=== PATIENT | male | born 1960 | race Hispanic/Latino ===

== ENCOUNTER 2020-11-13 19:35 | Emergency (ER) | payer OTHER ==
[2020-11-13] MEDS ORDERED: Morphine 4 MG/ML VIAL ONE (20:38)
[2020-11-13 20:55] LABS: Hemoglobin 14.7 g/dL (13.5-17.5); Mean Corpuscular HGB CONC 34.3 g/dL (32.0-36.0); Mean Corpuscular Hemoglobin 30.2 pg (27.0-33.0); Mean Corpuscular Volume 87.9 fl (81.2-95.1); Mean Platelet Volume 9.2 fl (7.4-10.4); Platelet Count 330 10x3/uL (150-450); RBC Distribution Width 12.3 % (11.5-14.5); Red Blood Cell (RBC) Count 4.87 10x6/uL (4.32-5.72); White Blood Cell (WBC) Count 21.5 10x3/uL (3.5-10.5)
[2020-11-13 21:11] LABS: ALT (SGPT) 12 U/L (8-55); AST (SGOT) 18 U/L (5-34); Albumin 3.6 g/dL (3.4-4.8); Alkaline Phosphatase 129 U/L (40-110); Anion Gap 17 mmol/L (10-20); BUN (Urea Nitrogen) 28 mg/dL (8.4-25.7); Bilirubin, Total 0.8 mg/dL (0.2-1.2); Calc. Creatinine Clearance 0 mL/min (70-130); Calcium 9.3 mg/dL (7.8-10.44); Carbon Dioxide 24 mmol/L (23-31); Chloride 95 mmol/L (98-107); Globulin 4.7 g/dL (2.4-3.5); Glucose 354 mg/dL (80-115); INR-International Normal Ratio 1.1; PTT 20.7 sec (22.0-33.0); Potassium 4.5 mmol/L (3.5-5.1); Protein, Total 8.3 g/dL (5.8-8.1); Prothrombin Time 11.9 sec (9.5-12.1); Sodium 131 mmol/L (136-145)
[2020-11-13 21:19] LABS: Band 16 % (5-11); Eosinophils 3 % (0-10); Lymphocytes 8 % (21-51); Monocytes 10 % (0-10); Neutrophil 63 % (42-75)
[2020-11-13 21:20] LABS: MDiff Complete? YES; Manual Diff?? YES
[2020-11-13 21:22] LABS: Platelet Morphology Comment Appears Adequate; RBC Morphology Normal
[2020-11-13] MEDS ORDERED: Cefepime 2 GM VIAL ONE (22:12)
[2020-11-14] MEDS ORDERED: Morphine 4 MG/ML VIAL ONE (01:28)
== END 2020-11-14 09:18 | disposition short-term general hospital (02) ==
LOC: CSHERS 19:35
DX: A41.9 Sepsis, unspecified organism (principal); L02.11 Cutaneous abscess of neck; M60.9 Myositis, unspecified; E10.9 Type 1 diabetes mellitus without complications; I25.10 Atherosclerotic heart disease of native coronary artery without angina pectoris; I48.91 Unspecified atrial fibrillation; Z79.82 Long term (current) use of aspirin; Z79.899 Other long term (current) drug therapy
CPT/HCPCS: 36415; 36416; 70491; 80053; 83605; 85025; 85610; 85730; 87040; 96365; 96366; 96367; 96375; 96376; J0692; J2270; J3370

== ENCOUNTER 2021-06-20 10:28 | Emergency (ER) | payer OTHER ==
[2021-06-20 11:10] LABS: #Monocytes 1.6 10x3/uL (0.0-1.1); %Basophils 0.2 % (0.0-2.0); %Lymphocytes 2.3 % (18.0-47.0); %Monocytes 8.9 % (0.0-10.0); %Neutrophils 87.8 % (40.0-75.0); Hemoglobin 13.1 g/dL (13.5-17.5); Mean Corpuscular HGB CONC 33.9 g/dL (32.0-36.0); Mean Corpuscular Volume 91.5 fl (81.2-95.1); Mean Platelet Volume 9.3 fl (7.4-10.4); Platelet Count 190 10x3/uL (150-450); RBC Distribution Width 12.3 % (11.5-14.5); Red Blood Cell (RBC) Count 4.23 10x6/uL (4.32-5.72); White Blood Cell (WBC) Count 18.2 10x3/uL (3.5-10.5)
[2021-06-20] MEDS ORDERED: Cefepime 2 GM VIAL ONE (11:11)
[2021-06-20 11:22] LABS: INR-International Normal Ratio 1.1; PTT 25.9 sec (22.0-33.0); Prothrombin Time 12.5 sec (9.5-12.1)
[2021-06-20 11:28] LABS: ALT (SGPT) 14 U/L (8-55); AST (SGOT) 23 U/L (5-34); Albumin 3.2 g/dL (3.4-4.8); Alkaline Phosphatase 91 U/L (40-110); Anion Gap 14 mmol/L (10-20); BUN (Urea Nitrogen) 22 mg/dL (8.4-25.7); Bilirubin, Total 1.6 mg/dL (0.2-1.2); Calc. Creatinine Clearance 0 mL/min (70-130); Calcium 8.2 mg/dL (7.8-10.44); Carbon Dioxide 20 mmol/L (23-31); Chloride 101 mmol/L (98-107); Globulin 3.5 g/dL (2.4-3.5); Glucose 237 mg/dL (80-115); Protein, Total 6.7 g/dL (5.8-8.1); Sodium 131 mmol/L (136-145)
[2021-06-20] MEDS ORDERED: CLINDAMYCIN IVPB SCH (11:45)
[2021-06-20] MEDS ORDERED: D5W IVPB SCH (11:45)
[2021-06-20] MEDS ORDERED: VANCOMYCIN 2 GRAM/400 ML BAG 2 GM in Premix Bag 1 BAG IVPB SCH (11:45)
[2021-06-20 11:55] LABS: SARS-CoV-2 NAA Rapid Test Not Detected (NotDetected)
== END 2021-06-20 14:51 | disposition short-term general hospital (02) ==
LOC: CSHERS 10:28 → EEVIPCON 10:28 → CSHERS 14:51
DX: A41.9 Sepsis, unspecified organism (principal); S06.6X0A Traumatic subarachnoid hemorrhage without loss of consciousness, initial encounter; L03.116 Cellulitis of left lower limb; E11.9 Type 2 diabetes mellitus without complications; I48.91 Unspecified atrial fibrillation; I25.10 Atherosclerotic heart disease of native coronary artery without angina pectoris; N40.1 Benign prostatic hyperplasia with lower urinary tract symptoms; Z20.822 Contact with and (suspected) exposure to COVID-19; Z79.82 Long term (current) use of aspirin; Z79.4 Long term (current) use of insulin; Z79.899 Other long term (current) drug therapy
CPT/HCPCS: 0240U; 70450; 71045; 80053; 83605; 85025; 85610; 85730; 86850; 86900; 86901; 87040; 87077; 87149; 87186; 93005; 96365; 96368; J0692; J3370; J3490

== ENCOUNTER 2021-07-08 10:15 | Emergency (ER) | payer OTHER ==
[2021-07-08 10:49] LABS: #Eosinphils 0.2 10x3/uL (0.0-0.5); #Monocytes 0.7 10x3/uL (0.0-1.1); #Neutrophils 6.1 10x3/uL (1.5-8.4); %Basophils 0.4 % (0.0-2.0); %Eosinophils 2.8 % (0.0-6.0); %Monocytes 8.7 % (0.0-10.0); %Neutrophils 74.9 % (40.0-75.0); Mean Corpuscular HGB CONC 32.2 g/dL (32.0-36.0); Mean Corpuscular Volume 93.3 fl (81.2-95.1); Mean Platelet Volume 8.6 fl (7.4-10.4); Platelet Count 304 10x3/uL (150-450); RBC Distribution Width 12.5 % (11.5-14.5); White Blood Cell (WBC) Count 8.2 10x3/uL (3.5-10.5)
[2021-07-08 11:05] LABS: ALT (SGPT) 9 U/L (8-55); AST (SGOT) 15 U/L (5-34); Albumin 3.1 g/dL (3.4-4.8); Alkaline Phosphatase 86 U/L (40-110); Anion Gap 12 mmol/L (10-20); BUN (Urea Nitrogen) 46 mg/dL (8.4-25.7); Bilirubin, Total 0.5 mg/dL (0.2-1.2); CK (CPK) 33 U/L (30-200); Calc. Creatinine Clearance 0 mL/min (70-130); Calcium 8.4 mg/dL (7.8-10.44); Carbon Dioxide 25 mmol/L (23-31); Chloride 104 mmol/L (98-107); Globulin 4.5 g/dL (2.4-3.5); Glucose 128 mg/dL (80-115); Magnesium 1.7 mg/dL (1.6-2.6); Potassium 4.4 mmol/L (3.5-5.1); Protein, Total 7.6 g/dL (5.8-8.1); Sodium 137 mmol/L (136-145)
== END 2021-07-08 15:07 | disposition short-term general hospital (02) ==
LOC: CSHERS 10:15
DX: N17.9 Acute kidney failure, unspecified (principal); E11.9 Type 2 diabetes mellitus without complications; I48.91 Unspecified atrial fibrillation; I25.10 Atherosclerotic heart disease of native coronary artery without angina pectoris; N40.0 Benign prostatic hyperplasia without lower urinary tract symptoms; Z79.82 Long term (current) use of aspirin; Z79.4 Long term (current) use of insulin; Z79.899 Other long term (current) drug therapy
CPT/HCPCS: 80053; 82550; 83605; 83735; 85025; 93005